=== PATIENT | male | born 1955 | race Caucasian/White ===

== ENCOUNTER 2019-08-06 22:54 | Inpatient (IN) ==
[2019-08-06] MEDS ORDERED: 0.9 % Sodium Chloride 1,000 ML IV ONE (23:03)
[2019-08-06 23:57] LABS: Basophils % 0.2 %; Eosinophils % 0.2 %; Hemoglobin 12.5 g/dL (12.9-16.9); Immature Granulocytes % 0.4 % (0-4); Lymphocytes # 1.1 K/mcL (0.6-4.6); Lymphocytes % 10.7 %; Mean Corpuscular HGB Conc 32.1 g/dL (31.6-35.5); Mean Corpuscular Volume 93.8 fL (83.0-100.0); Mean Platelet Volume 10.2 fL (9.4-12.4); Monocytes # 1.4 K/mcL (0.0-1.3); Monocytes % 14.1 %; Neutrophils # 7.5 K/mcL (1.6-8.9); Platelet Count 201 K/mcL (140-400); Prothrombin Time 11.8 Seconds (9.4-12.1); Red Blood Count 4.16 M/mcL (4.19-5.50); Red Cell Distribution Width 12.2 % (11.5-14.5); Segmented Neutrophils % 74.4 %
[2019-08-07] LABS: Activated Partial Thrombo Time 49.1 Seconds (26.0-36.0)
[2019-08-07] MEDS ORDERED: 0.9 % Sodium Chloride 1,000 ML IV ONE ×2 (00:11→01:06)
[2019-08-07 00:14] LABS: BUN/Creatinine Ratio 18 (6-26); Blood Urea Nitrogen 25 mg/dL (8-23); Calcium 9.2 mg/dL (8.6-10.3); Carbon Dioxide 25 mEq/L (23-29); Chloride 105 mEq/L (98-107); Glucose 126 mg/dL (70-105); Osmolality,Calculated 296 (280-300); Sodium 140 mEq/L (136-145); Troponin I 0.03 ng/mL (< 0.04); eGFR For African Americans > 60 (> 60); eGFR For Non-African Americans 50 (> 60)
[2019-08-07 02:21] LABS: Bilirubin,Urine Small (Negative); Blood,Urine Moderate (Negative); Clarity,Urine Turbid (Clear); Color,Urine Dark Yellow (Yellow); Glucose,Urine (UA) Normal (Normal); Ketones,Urine Trace mg/dL (Negative); Leukocyte Esterase,Urine Large (Negative); Nitrite,Urine Positive (Negative); PH,Urine 5.5 pH Units (5.0-8.0); Protein,Urine >=300 mg/dL (Neg-Trace); Specific Gravity,Urine 1.024 (1.010-1.025); Urobilinogen,Urine Normal (Normal)
[2019-08-07 02:24] LABS: Bacteria,Urine Many per hpf (None-Few); Hyaline Casts,Urine None Seen per lpf (None-Few); Squamous Epithelial Cell,Urine Many per lpf (None-Few); WBC,Urine TNTC per hpf (0-3)
[2019-08-07] MEDS ORDERED: cefTRIAXone 1,000 MG in 0.9 % Sodium Chloride Mini Bag 100 ML IVPB ONE (02:30)
[2019-08-07] MEDS ORDERED: Naloxone 0.4 MG/ML INJ IVP PRN (04:03)
[2019-08-07] MEDS ORDERED: Albuterol 2.5 MG/3 ML NEBULIZER IH PRN (05:07)
[2019-08-07] MEDS: cloZAPine 100 MG TABLET PO SCH (09:13)
[2019-08-07] MEDS: *HR* LORazepam 1 MG TABLET PO SCH ×2 (09:13→19:49)
[2019-08-07] MEDS: Cholecalciferol (D-3) 1,000 UNIT (25MCG) TABLET PO SCH (09:13)
[2019-08-07] MEDS: cephALEXin 500 MG CAPSULE PO SCH ×2 (15:03→19:49)
[2019-08-07] MEDS: *HR* Heparin 5,000 UNIT/ML VIAL SQ SCH (17:51)
[2019-08-08] MEDS: *HR* Heparin 5,000 UNIT/ML VIAL SQ SCH ×2 (06:20→18:06)
[2019-08-08] MEDS: *HR* LORazepam 1 MG TABLET PO SCH ×2 (08:26→21:45)
[2019-08-08] MEDS: cloZAPine 100 MG TABLET PO SCH ×2 (08:26→21:45)
[2019-08-08] MEDS: Cholecalciferol (D-3) 1,000 UNIT (25MCG) TABLET PO SCH (08:26)
[2019-08-08] MEDS: cephALEXin 500 MG CAPSULE PO SCH ×3 (08:26→21:47)
[2019-08-09] MEDS: *HR* Heparin 5,000 UNIT/ML VIAL SQ SCH ×2 (05:28→17:30)
[2019-08-09 07:28] LABS: Basophils % 0.5 %; Eosinophils # 0.1 K/mcL (0.0-0.6); Eosinophils % 1.7 %; Hematocrit 35.9 % (37.5-50.1); Lymphocytes # 1.3 K/mcL (0.6-4.6); Lymphocytes % 23.3 %; Mean Corpuscular HGB Conc 33.4 g/dL (31.6-35.5); Mean Corpuscular Hemoglobin 30.2 pg (28.0-33.3); Mean Corpuscular Volume 90.2 fL (83.0-100.0); Mean Platelet Volume 10.1 fL (9.4-12.4); Monocytes # 0.9 K/mcL (0.0-1.3); Monocytes % 15.7 %; Neutrophils # 3.3 K/mcL (1.6-8.9); Platelet Count 196 K/mcL (140-400); Red Blood Count 3.98 M/mcL (4.19-5.50); Segmented Neutrophils % 57.8 %; White Blood Count 5.8 K/mcL (4.3-11.1)
[2019-08-09 07:44] LABS: BUN/Creatinine Ratio 16 (6-26); Blood Urea Nitrogen 15 mg/dL (8-23); Calcium 9.2 mg/dL (8.6-10.3); Carbon Dioxide 28 mEq/L (23-29); Chloride 105 mEq/L (98-107); Glucose 90 mg/dL (70-105); Osmolality,Calculated 298 (280-300); Potassium 3.8 mEq/L (3.5-5.1); Sodium 144 mEq/L (136-145); eGFR For African Americans > 60 (> 60); eGFR For Non-African Americans > 60 (> 60)
[2019-08-09] MEDS: cephALEXin 500 MG CAPSULE PO SCH ×3 (09:46→20:34)
[2019-08-09] MEDS: Cholecalciferol (D-3) 1,000 UNIT (25MCG) TABLET PO SCH (09:47)
[2019-08-09] MEDS: *HR* LORazepam 1 MG TABLET PO SCH ×2 (09:47→20:34)
[2019-08-09] MEDS: cloZAPine 100 MG TABLET PO SCH ×2 (09:50→20:33)
[2019-08-10] MEDS: *HR* Heparin 5,000 UNIT/ML VIAL SQ SCH (06:49)
[2019-08-10 09:22] LABS: Basophils % 0.4 %; Eosinophils # 0.1 K/mcL (0.0-0.6); Eosinophils % 2.4 %; Hematocrit 35.4 % (37.5-50.1); Hemoglobin 11.7 g/dL (12.9-16.9); Immature Granulocytes % 0.6 % (0-4); Lymphocytes # 1.4 K/mcL (0.6-4.6); Lymphocytes % 27.7 %; Mean Corpuscular HGB Conc 33.1 g/dL (31.6-35.5); Mean Corpuscular Hemoglobin 29.9 pg (28.0-33.3); Mean Corpuscular Volume 90.5 fL (83.0-100.0); Mean Platelet Volume 9.8 fL (9.4-12.4); Monocytes # 0.7 K/mcL (0.0-1.3); Monocytes % 13.9 %; Neutrophils # 2.8 K/mcL (1.6-8.9); Platelet Count 202 K/mcL (140-400); Red Blood Count 3.91 M/mcL (4.19-5.50)
[2019-08-10] MEDS: Cholecalciferol (D-3) 1,000 UNIT (25MCG) TABLET PO SCH (09:43)
[2019-08-10] MEDS: *HR* LORazepam 1 MG TABLET PO SCH (09:43)
[2019-08-10] MEDS: cephALEXin 500 MG CAPSULE PO SCH (09:43)
[2019-08-10] MEDS: cloZAPine 100 MG TABLET PO SCH (09:43)
[2019-08-10 10:21] VITALS: BP 123/77
== END 2019-08-10 14:17 | DRG 872 ==
LOC: 3ANU 22:54 → EMEROOARM 22:54 → SUATTDRO 08-07 03:23 → 3ANU 08-07 04:10 → SUATTDRO 08-08 07:36 → 3ANU 08-11 01:22
PROVIDERS: ADMIT Internal Medicine; ATTEND Internal Medicine